=== PATIENT | male | born 1995 | race Caucasian/White ===

== ENCOUNTER 2024-03-12 06:25 | Day surgery (SDC) | payer BC ==
[~2024-03-12 06:25] MED LIST: Albuterol 0.083% 2.5 MG/3 ML Neb Soln NEB PRN; HYDROmorphone 1 MG/ML Syringe IVPUSH PRN; Metoclopramide 10 MG/2 ML SDV IVPUSH PRN; Morphine 2 MG/ML SYRINGE IVPUSH PRN; Naloxone 0.4 MG/ML SDV IVPUSH PRN; Ondansetron 4 MG/2 ML SDV IVPUSH PRN; ceFAZolin 2 GM in Sodium Chloride 0.9% 50 ML IV ONE; droPERidol 5 MG/2 ML SDV IVPUSH PRN; fentaNYL 50 MCG/ML SDV IVPUSH PRN
[2024-03-12] MEDS ORDERED: fentaNYL 250 MCG/5 ML SDV ONE (07:00)
[2024-03-12] MEDS ORDERED: Propofol 200 MG/20 ML SDV ONE (07:00)
[2024-03-12] MEDS ORDERED: Dexamethasone 4 MG/ML 5 ML MDV ONE (07:01)
[2024-03-12] MEDS ORDERED: Ondansetron 4 MG/2 ML SDV ONE (07:01)
[2024-03-12] MEDS ORDERED: Rocuronium Bromide 50 MG/5 ML Syringe ONE (07:01)
[2024-03-12] MEDS ORDERED: Lidocaine 1% 5 ML VIAL ONE (07:01)
[2024-03-12] MEDS ORDERED: Water For Injection, Sterile 20 ML ONE (07:05)
[2024-03-12] MEDS ORDERED: dexmedeTOMIDine HCl 200 MCG/2 ML SDV ONE (07:05)
[2024-03-12] MEDS: Lactated Ringers 1,000 ML IV SCH (07:12)
[2024-03-12] MEDS ORDERED: Bupivacaine 0.5% 30 ML SDV ONE ×2 (07:31→07:34)
[2024-03-12] MEDS ORDERED: ceFAZolin 1 GM Vial ONE (07:34)
[2024-03-12] MEDS ORDERED: ceFAZolin 2 GM Vial ONE (08:10)
[2024-03-12] MEDS ORDERED: Ketorolac 30 MG/ML SDV ONE (08:15)
[2024-03-12] MEDS ORDERED: Sugammadex Sodium 200 MG/2 ML VIAL IV ONE (08:15)
[2024-03-12] MEDS ORDERED: Ondansetron 4 MG/2 ML SDV IVPUSH PRN (09:44)
[2024-03-12] MEDS ORDERED: Morphine 4 MG/ML Syringe IVPUSH PRN (09:44)
[2024-03-12] MEDS ORDERED: Lactated Ringers 1,000 ML IV SCH (09:45)
[2024-03-12] MEDS: Acetaminophen/HYDROcodone 325-5 MG Tab PO PRN (12:38)
== END 2024-03-12 12:55 | disposition home or self-care (01) ==
LOC: MW.SDS 06:25
PROVIDERS: ATTEND Surgery
DX: K40.90 Unilateral inguinal hernia, without obstruction or gangrene, not specified as recurrent (principal); I10 Essential (primary) hypertension; Z79.899 Other long term (current) drug therapy
CPT/HCPCS: 49505; 64486; A9270; J0131; J0665; J0690; J1100; J1885; J2704; J3010; J3490; J7120; C1781; J2405